=== PATIENT | male | born 1960 | race Hispanic/Latino ===

== ENCOUNTER 2020-08-03 09:37 | Emergency (ER) | payer OTHER ==
[2020-08-03] MEDS ORDERED: SMZ./TMP. 800/160 MG TABLET ONE (10:11)
[2020-08-03] MEDS ORDERED: dexAMETHasone 10 MG/ML VIAL ONE (10:11)
--- NOTE | 2020-08-03 11:05 | RAD REPORT ---
EXAM DESCRIPTION: USExtremity Venous Uni Ltd08/03/2020 10:42 am CLINICAL HISTORY: Right leg swelling COMPARISON: None. FINDINGS: Right common femoral, superficial femoral, popliteal and right posterior tibial veins are compressible and demonstrate augmentation. Doppler demonstrates good flow. IMPRESSION: No evidence of deep venous thrombosis involving the right lower extremity.
--- NOTE | 2020-08-03 11:21 | EDPHYS ---
Physician Documentation [facility] Name: Boni Lew Age: 59 yrs Sex: Male : 1960 Arrival Date: 08/03/2020 Time: 09:39 Bed 6 Private MD: Edilberto Gann C ED Physician Napoleon Parmar HPI: 08/03 09:56 This 59 yrs old Male presents to ER via Ambulatory with complaints of Leg rn Swelling. 09:56 The patient presents with swelling. The complaints affect the right calf and right treviño.rn 09:57 Onset: The symptoms/episode began/occurred 4 day(s) ago. Modifying factors: The rn symptoms are alleviated by nothing. the symptoms are aggravated by nothing. Severity of symptoms: At their worst the symptoms were mild, in the emergency department the symptoms are unchanged. The patient has not experienced similar symptoms in the past. Reports swelling and redness to right lower leg, + itchy, has been around poison cain at home and mowing, but not sure, no fever, doesn't feel ill, doesn't hurt. . Historical: - Allergies: :52 No Known Allergies; iw - Home Meds: 09:52 amlodipine 5 mg tab 1 tab once daily [Active]; metoprolol tartrate 100 mg Oral tab 1 iw tab 2 times per day [Active]; hydrochlorothiazide 12.5 mg Oral cap 1 cap once daily [Active]; olmesartan oral 40 mg oral once daily [Active]; rosuvastatin 10 mg oral tab 1 tab once daily [Active]; Xigduo XR oral oral once daily [Active]; - PMHx: 09:52 Gout; Hypertension; Kidney stones; Diabetes - NIDDM; iw - PSHx: :52 None; iw - Immunization history:: Adult Immunizations not up to date. - Social history:: Smoking status: Patient denies any tobacco usage or history of. - Family history:: not pertinent. - Hospitalizations: : No recent hospitalization is reported. ROS: 09:57 Constitutional: Negative for fever, chills, and weight loss, Eyes: Negative for injury, rn pain, redness, and discharge, Cardiovascular: Negative for chest pain, palpitations, and edema, Respiratory: Negative for shortness of breath, cough, wheezing, and pleuritic chest pain, Abdomen/GI: Negative for abdominal pain, nausea, vomiting, diarrhea, and constipation, MS/Extremity: Negative for injury and deformity, Skin: + redness to RLE Neuro: Negative for headache, weakness, numbness, tingling, and seizure. Exam: 09:57 Constitutional: This is a well developed, well nourished patient who is awake, alert, rn and in no acute distress. Respiratory: No increased work of breathing, no retractions or nasal flaring. MS/ Extremity: Pulses equal, no cyanosis. Neurovascular intact. Full, normal range of motion. + increased circumference RLE below knee with 1+ pitting edema, + redness and blanching. + a few crusted lesions/raised lesions to anterior and posterior RLE. Vital Signs: 09:48 BP 140 / 81; Pulse 93; Resp 16; Pulse Ox 98% on R/A; Weight 145.15 kg; Height 5 ft. 8 iw in. (172.72 cm); 10:48 BP 117 / 74; Pulse 75; Resp 16; Pulse Ox 97% ; bp 11:41 BP 111 / 78; Pulse 71; Resp 16; Temp 98; Pulse Ox 98% ; bp 09:48 Body Mass Index 48.66 (145.15 kg, 172.72 cm) iw MDM: 09:42 Patient medically screened. rn 11:16 Differential diagnosis: DVT, dermatitis, cellulitis. Data reviewed: vital signs, nurses rn notes, radiologic studies, doppler, and as a result, I will discharge patient. Counseling: I had a detailed discussion with the patient and/or guardian regarding: the historical points, exam findings, and any diagnostic results supporting the discharge/admit diagnosis, radiology results, the need for outpatient follow up, to return to the emergency department if symptoms worsen or persist or if there are any questions or concerns that arise at home. Special discussion: I discussed with the patient/guardian in detail that at this point there is no indication for admission to the hospital. It is understood, however, that if the symptoms persist or worsen the patient needs to return immediately for re-evaluation. ED course: DVT study negative, most likely contact dermatitis, possibly poison cain, will dc home with steroids and abx.. 08/03 09:55 Order name: Extremity Venous Uni [facility] ; Complete Time: 11:16 rn Administered Medications: 10:03 Drug: Decadron 10 mg Route: IM; Site: left deltoid; bp 10:48 Follow up: Response: No adverse reaction bp 10:03 Drug: Bactrim (160 mg-800 mg (DS) 1 tablet Route: PO; bp 10:48 Follow up: Response: No adverse reaction bp Disposition: 08/03/20 11:20 Discharged to Home. Impression: Cellulitis of right lower limb, Dermatitis, unspecified. - Condition is Stable. - Discharge Instructions: Cellulitis, Adult. - Prescriptions for Medrol (Nasim) 4 mg Oral Tablets, Dose Pack - take 1 tablet by ORAL route as directed - follow package instructions; 1 packet. Bactrim DS 800- 160 mg Oral Tablet - take 1 tablet by ORAL route every 12 hours for 10 days; 20 tablet. - Medication Reconciliation Form, Thank You Letter, Antibiotic Education, Prescription Opioid Use form. - Follow up: Edilberto Gann MD; When: As needed; Reason: Recheck today's complaints, Re-evaluation by your physician. - Problem is new. - Symptoms are unchanged. Signatures: Dispatcher [employer] EDAraceli Redd RN RN iw Nieto, Roman, MD MD rn Peltier, Brian, RN RN bp Corrections: (The following items were deleted from the chart) 11:43 11:20 08/03/2020 11:20 Discharged to Home. Impression: Cellulitis of right lower limb; bp Dermatitis, unspecified. Condition is Stable. Forms are Medication Reconciliation Form, Thank You Letter, Antibiotic Education, Prescription Opioid Use. Follow up: Edilberto Gann; When: As needed; Reason: Recheck today's complaints, Re-evaluation by your physician. Problem is new. Symptoms are unchanged. rn
--- NOTE | 2020-08-03 11:21 | ER ---
Nurse's Notes [facility] Name: Boni Lew Age: 59 yrs Sex: Male : 1960 Arrival Date: 08/03/2020 Time: 09:39 Bed 6 Private MD: Edilberto Gann C Diagnosis: Cellulitis of right lower limb;Dermatitis, unspecified Presentation: 08/03 09:48 Chief complaint: Patient states: redness, swelling to RLE since Saturday. Coronavirus iw screen: At this time, the client does not indicate any symptoms associated with coronavirus-19. Ebola Screen: Patient negative for fever greater than or equal to 101.5 degrees Fahrenheit, and additional compatible Ebola Virus Disease symptoms Patient denies exposure to infectious person. Patient denies travel to an Ebola-affected area in the 21 days before illness onset. No symptoms or risks identified at this time. Initial Sepsis Screen: Does the patient meet any 2 criteria? No. Patient's initial sepsis screen is negative. Does the patient have a suspected source of infection? No. Patient's initial sepsis screen is negative. Risk Assessment: Do you want to hurt yourself or someone else? Patient reports no desire to harm self or others. Onset of symptoms was July 31, 2020. 09:48 Method Of Arrival: Ambulatory iw 09:48 Acuity: STIVEN 3 iw Triage Assessment: 09:55 General: Appears in no apparent distress. comfortable, obese, Behavior is cooperative, bp appropriate for age, anxious. Pain: Complains of pain in right treviño and right calf. EENT: No deficits noted. Neuro: No deficits noted. Cardiovascular: No deficits noted. Respiratory: No deficits noted. GI: No signs and/or symptoms were reported involving the gastrointestinal system. : No signs and/or symptoms were reported regarding the genitourinary system. Derm: Skin is red, RLE. Musculoskeletal: Swelling present in right treviño and right calf Reports pain in right treviño and right calf. Historical: - Allergies: :52 No Known Allergies; iw - Home Meds: :52 amlodipine 5 mg tab 1 tab once daily [Active]; metoprolol tartrate 100 mg Oral tab 1 iw tab 2 times per day [Active]; hydrochlorothiazide 12.5 mg Oral cap 1 cap once daily [Active]; olmesartan oral 40 mg oral once daily [Active]; rosuvastatin 10 mg oral tab 1 tab once daily [Active]; Xigduo XR oral oral once daily [Active]; - PMHx: 09:52 Gout; Hypertension; Kidney stones; Diabetes - NIDDM; iw - PSHx: 09:52 None; iw - Immunization history:: Adult Immunizations not up to date. - Social history:: Smoking status: Patient denies any tobacco usage or history of. - Family history:: not pertinent. - Hospitalizations: : No recent hospitalization is reported. Screenin:55 Abuse screen: Denies threats or abuse. Denies injuries from another. Nutritional bp screening: No deficits noted. Tuberculosis screening: No symptoms or risk factors identified. Fall Risk None identified. Assessment: : General: SEE TRIAGE NOTE. bp 10:04 Reassessment: PT TO U/S. bp 10:48 Reassessment: PT RETURNED FROM U/S. bp 11:41 Reassessment: PT D/C HOME AMBULATORY, DX WITH RLE CELLULITIS. bp Vital Signs: 09:48 BP 140 / 81; Pulse 93; Resp 16; Pulse Ox 98% on R/A; Weight 145.15 kg; Height 5 ft. 8 iw in. (172.72 cm); 10:48 BP 117 / 74; Pulse 75; Resp 16; Pulse Ox 97% ; bp 11:41 BP 111 / 78; Pulse 71; Resp 16; Temp 98; Pulse Ox 98% ; bp 09:48 Body Mass Index 48.66 (145.15 kg, 172.72 cm) iw ED Course: 09:39 Patient arrived in ED. ag5 09:39 Edilberto Gann MD is Private Physician. ag5 09:42 Juan Talley, RN is Primary Nurse. bp 09:42 Napoleon Parmar MD is Attending Physician. rn 09:49 Triage completed. iw 09:52 Arm band placed on. iw :55 Patient has correct armband on for positive identification. Bed in low position. Call bp light in reach. Side rails up X2. 10:25 Extremity Venous Uni Ltd US In Process Unspecified. EDMS 11:20 Edilberto Gann MD is Referral Physician. rn 11:41 No provider procedures requiring assistance completed. Patient did not have IV access bp during this emergency room visit. Administered Medications: 10:03 Drug: Decadron 10 mg Route: IM; Site: left deltoid; bp 10:48 Follow up: Response: No adverse reaction bp 10:03 Drug: Bactrim (160 mg-800 mg (DS) 1 tablet Route: PO; bp 10:48 Follow up: Response: No adverse reaction bp Outcome: 11:20 Discharge ordered by . rn 11:41 Discharged to home ambulatory. bp 11:41 Condition: stable 11:41 Discharge instructions given to patient, Instructed on discharge instructions, follow up and referral plans. medication usage, Demonstrated understanding of instructions, follow-up care, medications, Prescriptions given X 2. 11:43 Patient left the ED. bp Signatures: Dispatcher [employer] EDAraceli Redd RN RN iw Nieto, Roman, MD MD rn Peltier, Brian, RN RN bp Gaskin, Ajare ag5
[2020-08-03 11:58] VITALS: BP 111/78; TEMP 98; O2SAT 98
== END 2020-08-03 11:43 | disposition home or self-care (01) ==
LOC: ER 09:37
DX: L03.115 Cellulitis of right lower limb (principal); L30.9 Dermatitis, unspecified; I10 Essential (primary) hypertension; E11.9 Type 2 diabetes mellitus without complications; Z87.442 Personal history of urinary calculi
CPT/HCPCS: 93971; 96372; 99283; J1100